=== PATIENT | male | born 2005 | race Caucasian/White ===

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

== ENCOUNTER 2025-07-17 10:27 | Emergency (ER) | payer OTHER ==
[~2025-07-17] VITALS: Ht 170.2 cm; Wt 81.7 kg
[2025-07-17 10:44] VITALS: BP 139/84
[2025-07-17] MEDS ORDERED: Tetracaine HCl/Pf 0.5% Opth Soln 4 ml LEFTEYE ONE (10:50)
[2025-07-17] MEDS ORDERED: Fluorescein Sod 1MG Opth Strips LEFTEYE ONE (10:50)
[2025-07-17] MEDS ORDERED: Erythromycin 0.5% Opth Oint 1 gm LEFTEYE ONE (11:10)
== END 2025-07-17 11:23 | disposition home or self-care (01) ==
LOC: ER 10:27
DX: T15.02XA Foreign body in cornea, left eye, initial encounter (principal); W44.E0XA Non-magnetic metal object unspecified, entering into or through a natural orifice, initial encounter
CPT/HCPCS: 65222; 90471; 90715; 99282-25; A9270